=== PATIENT | female | born 1990 | race Caucasian/White ===

== ENCOUNTER 2022-03-16 | Day surgery (SDC) | payer OTHER, SELFPAY ==
[2022-03-08 14:34] VITALS: BMI 25.1
--- NOTE | 2022-03-08 14:37 | SUR.PREOP ---
Report to the Outpatient Waiting Room, entrance under the green pavilion located off [facility], at time _0600 on date _03/16/22 . OR Time: _729 . - You and your visitor will be asked a series of questions to screen for COVID 19 for your protection. - Only one visitor is allowed at this time. - The patient visitor is requested to leave or wait in car when not with patient. - A mask is required within the hospital. Patients may have clear liquids (water, carbonated beverages, clear teas, apple juice) until 3 hours prior to surgery with a maximum of 20 ounces. - No food from midnight until time of surgery - Infants may have breast milk until 4 hours before surgery, infant formula 6 hours prior to surgery. - Children will be allowed to drink immediately following surgery. If applicable, please bring a bottle or sippy cup to assist with drinking. Juice, water, soda, and popsicles are readily available. For infants on formula, please bring formula the day of surgery. Pacifiers are allowed. Take the following medications with a SIP of water the morning of surgery: _xanax,amlodipine,metoprolol,sertaline,language arts teacher thyroid Medications to discontinue per physician n/a Date to take last dose__n/a Please no make-up, nail dutch, hairspray, perfume, deodorant, or body powder the day of surgery. No jewelry (including any body piercings) or valuables the day of surgery, leave them at home. Please take a shower or bath the night before, or the morning of, surgery with an antibacterial soap. Wear comfortable, loose fitting clothing. Children are encouraged to wear pajamas. - Jewelry must be removed prior to entering the operating room. Rings and piercings that are not removed may be cut off. - The hospital will not accept responsibility for valuables. - Please leave all valuables, including medications, at home the day of surgery. If you are going home after surgery, a licensed rail car driver must drive you home. - NO public transportation without another adult. - We recommend that an adult stay with you for 24 hours following discharge. - We also recommend that you do not drive, make important decision, drink alcoholic beverages, or take any drugs that were not prescribed by your health care provider for at least 24 hours after your discharge time. For Pediatric surgeries, we recommend two adults accompany the child home (only one inside the building at this time). Follow any additional instructions given to you from your surgeon. If you or anyone in your household have experienced Covid symptoms in the past week, please notify your surgeon or the nurse liaison at the phone number below for possible testing. Telephone instructions given to _braxton driscoll and asked if any additional questions and then verbalized understanding. Patient advised to call surgeon office or pre surgery nurse liaison [phone] if any additional questions.
--- NOTE | 2022-03-15 15:11 | P.PNAN_ITS ---
Anes - Initial Pre Proc Eval Procedure: Operation Date: 03/16/22 07:30 Proposed Procedures p Bilateral Breast Implant Exchange - Indio Lock MD s Bilateral Breast Fat Graft - Indio Lock MD Date/Time: 03/15/22 15:11 Surgeon: Indio Lock MD Pre Op Diagnosis: Hx of Breast Cancer Patient Data Age: 31 Gender: F Height: 1.57 m Weight: 62.27 kg Allergies Allergy/AdvReac Type Severity Reaction Status Date / Time CT dye Allergy Severe Anaphylaxis Uncoded 03/16/22 06:34 Home Medications Medication Instructions Recorded Confirmed Type alprazolam [Xanax] 1 mg PO PRN 06/01/21 03/16/22 History amlodipine 5 mg PO DAILY 06/01/21 03/16/22 History lisinopril-hydrochlorothiazide 12.5 - 25 mg PO DAILY 06/01/21 03/16/22 History metoprolol succinate 50 mg PO DAILY 06/01/21 03/16/22 History carisoprodol 350 mg tablet (Soma) 350 mg PO TID PRN muscle pain #21 03/08/22 03/08/22 Rx tabs docusate sodium 100 mg capsule 100 mg PO DAILY #14 caps 03/08/22 Rx (Colace) hydrocodone 5 mg-acetaminophen 325 1 tablet PO Q6H PRN pain #30 tabs 03/08/22 03/08/22 Rx mg tablet sertraline 25 mg tablet 25 mg PO DAILY 03/08/22 03/16/22 History thyroid (pork) 15 mg tablet (CHIEF [employer]LLER 15 mg PO DAILY 03/16/22 03/16/22 History Thyroid) Patient hx anesthesia problems: none Family hx anesthesia problems: none Results Review: All pre-operative results and documents have been reviewed as part of the pre- operative evaluation. [facility] Past Medical History Medical History Acute Crohn's disease Lelo's disease Hypertension Surgical History Surgical History History of breast implant History of delivery History of hysterectomy History of mastectomy, total Family History Family History Father Acute Crohn's disease Hypertension Hemophilia Mother Hypertension Ovarian cancer Social History Social History Smoking status: Never smoker Alcohol intake: current Alcohol use details: once a month ,socially Substance use: current Substance use type: marijuana Other substance usage details: vape ,every other night thc Living arrangements: with family Spiritual care concerns: No Anes - Eval Final PreProcedure Day of Procedure 03/15/22 15:11 Patient weight: overweight Heart: regular rate and rhythm Lungs: clear to auscultation Airway: Mallampati scale class II Neurological: alert and oriented Last oral intake: >/= 8 hours ASA classification: III Emergent: no Anesthetic plan: proceed Anesthesia type and monitoring: general LMA and standard monitoring Results Review: All pre-operative results and documents have been reviewed as part of the pre- operative evaluation. Informed Consent: The patient's anesthetic plan and its attendant risks and benefits were discussed with the patient/family/POA. Questions were solicited and answers provided to the satisfaction of the patient/family/POA.
[2022-03-16] VITALS (8 sets, daily range): BP systolic 116–156; BP diastolic 69–103; PULSE 60–70; RESP 12–19; TEMP 36.1–36.9; O2SAT 99–100; BMI 26.2
[2022-03-16] MEDS: LACTATED RINGERS 1,000 ML 30 ML IV CONT ×2 (06:55→11:14)
--- NOTE | 2022-03-16 07:00 | WPDHPUPDATE1 ---
History and Physical Update Update Date/Time: 03/16/22 07:00 History and Physical has been reviewed, including an updated exam of the patient. There are NO changes in the patient's condition. Risks, benefits, and alternatives have been discussed and questions answered. Patient agrees to proceed with procedure.
[2022-03-16 07:14] LABS: Urine Cotinine NEGATIVE
--- NOTE | 2022-03-16 07:14 | P.OP_ITS ---
Procedure Note - Detailed Date of Procedure 03/16/22 Pre-op Diagnosis Acquired breast deformity Hx of Breast Cancer Post-op Diagnosis Same Procedure Performed 1. Bilateral breast fat grafting 2. Bilateral breast implant exchange 3. Bilateral breast capsulorraphy Surgeon Indio Lock MD Findings Bilateral breast fat grafting: Lipoaspirate from abdomen / flank 1200 cc Right breast 120 cc Left breast 120 cc Bilateral Loretorellshiraz Inspira Right REF# [id number] SN [id number] Left REF# [id number] SN [id number] Description of Procedure Preoperatively the risks, benefits, alternatives were discussed in extensive detail. Wanted her and her family to be very realistic about the risks involved as well as expectations. Made sure answered all of their questions to their satisfaction. Consent was obtained. She was marked in the preoperative holding area with her verification. She was taken to the operating room placed supine on the operating room table. Anesthesia provided by anesthesiology and prepped and draped in a standard sterile fashion. Surgical time-out was taken. First did a thorough abdominal examination was completed. 18 gauge used a stab incision and I tumesced with a tumescent solution. Once adequate time for hemostasis using a 3 mm multi hole cannula suction lipectomy was completed multiple planes and passes for the desired lipoaspirate volume. Allowed this to separate on the back table with gravity separation into the wrist adequate separation of the adipose tissue. Utilizing only the central portion this was injected in multiple planes and passes to the breast. I used an 18 gauge to make a stab incision in the volumes as above. Fifteen blade was used to excise the IMF scar bilateral. Dissection was continued down until the pocket was identified. Implants removed. Verified strict hemostasis. I copiously irrigated with 3 L of saline solution on TUR tubing. Lateral breast popcorn capsulorraphy completed bilateral due to lateral breast migration. Betadine solution was used area of pocket as well as wash my gloves. Using a no -touch technique and a Guy funnel the implant was introduced into the pocket. This was closed with 2-0 Vicryl followed by 3-0 my and running subcuticular 4-0 Monocryl. Final closure was tissue glue. Patient was woken taken to the PACU without difficulty. All instrument sponge counts were correct at the end of the case. Estimated Blood Loss 25 Drains No Packing No Pathology None sent Complications No immediate complications Condition Stable Disposition PACU
--- NOTE | 2022-03-16 07:24 | SUR.PREOP ---
DR SANDY NOTIFIED OF HIGH BP, 147/115 THEN REPEATED AT 156/102,
[2022-03-16] MEDS: NACL 0.9% IRRIG POUR BOTTLE 900 ML, GENTAMICIN SULFATE INJ 160 MG, ceFAZolin 2 GM, POVI... IRRIGATION (07:25)
[2022-03-16] MEDS: LIDO 1%/EPINEPHRINE/PF 1:200,000 30 ML VIAL 10 ML XX (07:25)
[2022-03-16] MEDS: ceFAZolin 2 GM/D5W 50 ML 2 GM/50 ML BAG IVPB (07:25)
[2022-03-16] MEDS: LACTATED RINGERS IRRIG 1,000 ML, LIDOCAINE HCL 1% LOCAL INJ 50 ML, EPINEPHrine HCL INJ ... INFILTRATE (07:25)
[2022-03-16] MEDS: BUPIVACAINE HCL 0.25% PF 30 ML VIAL INFILTRATE (08:25)
[2022-03-16] MEDS: fentaNYL CITRATE INJ (*CRX) 100 MCG/2 ML VIAL 25 MCG IV PUSH ×4 (10:07→10:41)
[2022-03-16] MEDS: oxyCODONE HCL (*CRX) 5 MG TAB IR PO (11:06)
== END 2022-03-16 11:50 | disposition home or self-care (01) ==
PROVIDERS: Visit Provider Surgery Plastic and Reconstructive Surgery
PROC: (CPT 19380; principal; 2022-03-16 07:30)
PROC: (CPT 15769; 2022-03-16 07:30)
DX: N64.89 Other specified disorders of breast (principal); Z85.3 Personal history of malignant neoplasm of breast; Z14.8 Genetic carrier of other disease; Z15.01 Genetic susceptibility to malignant neoplasm of breast; Z90.13 Acquired absence of bilateral breasts and nipples; I10 Essential (primary) hypertension; E06.3 Autoimmune thyroiditis; K50.90 Crohn's disease, unspecified, without complications; F12.90 Cannabis use, unspecified, uncomplicated
CPT/HCPCS: 19380; 80307; A9270; C1789; J0171; J0690; J1100; J1170; J1580; J2250; J2370; J2405; J2704; J3010; J7120